=== PATIENT | male | born 1955 | race Caucasian/White ===

== ENCOUNTER 2018-08-25 12:17 | Day surgery (SDC) | payer BC ==
[2018-08-25] MEDS ORDERED: PROPOFOL 10 MG/ML VIAL IV ONE (12:18)
[2018-08-25] MEDS ORDERED: LIDOCAINE 2% MDV (20MG/ML) 20ML VIAL IV ONE (12:18)
--- NOTE | 2018-08-26 13:30 | Operative Note ---
DATE OF SURGERY: 08/25/2018 OPERATION: COLONOSCOPY to the cecum with cold snare polypectomy x1, electrocautery snare polypectomy x2, tattoo ink spot injection, Endoclip placement for closure. INDICATION: Colorectal cancer screening. Patient also notices occasions where he sees blood with his stool. ANESTHESIA: Intravenous sedation was administered by the department of anesthesiology and included Diprivan titrated to effect. PROCEDURE: Following informed consent from this alert individual including a discussion of the risks and benefits of the procedure and an opportunity for the patient to ask questions, the patient was in the left lateral decubitus position. A digital rectal examination was performed. There was mild anal stenosis noted. No masses were palpable. Following this, the Olympus [id number] video colonoscope was inserted into the rectum without resistance. The rectal mucosa had a normal appearance with normal folds and distensibility. The sigmoid colon was cannulated and demonstrated 3 polyps measuring in size between 6-15 mm in size, two of which were semi-pedunculated. The polyps were initially traversed and the colonoscope was advanced farther up through the bowel to the level of the cecum without much difficulty. Throughout the remainder of the bowel, the mucosa appeared normal, the folds were normal, and the bowel was fairly well distensible. The cecum was identified by noting the appendiceal orifice and ileocecal valve. Retroflexion was accomplished in the cecum. From the base of the cecum, the colonoscope was then withdrawn. No abnormalities were noted until the sigmoid colon was reached. The most proximal sigmoid polyp measured 10 mm in size and was removed with electrocautery snare polypectomy and suctioned through the colonoscope into a collection trap. The second polyp was approximately 6 mm in size and removed with cold snare polypectomy and suctioned through the colonoscope. The largest polyp was the most distal in the sigmoid colon measuring 15 mm across the head with a wide stalk. The polyp was removed in total with 1 application of electrocautery snare and suctioned on the tip of the colonoscope and withdrawn back through the remainder of the bowel and placed into a specimen container. The colonoscope was then re-advanced to the polypectomy site. The site was injected with ink spot and then closed with application of one Endoclip. The colonoscope was then further withdrawn. The rectum was endoscopically normal. Retroflexion in the rectum was also endoscopically unremarkable. The instrument was straightened and removed. The patient tolerated the procedure well and was returned to the recovery area in stable condition. IMPRESSION: Three sigmoid colon polyps noted as described above measuring 6, 10, and 15 mm, respectively, with the largest polyp distally, removed with electrocautery snare polypectomy, injected with ink spot and clipped for closure. RECOMMENDATIONS: Further recommendations will be forthcoming pending results of pathology obtained today. Followup will also be with Dr. Olson. As always, thank you for allowing me to participate in the care of your patient. CC: RADHA OLSON MD, FACP [facility]
== END 2018-08-25 14:24 | disposition home or self-care (01) ==
LOC: HOP 12:17
PROVIDERS: ATTEND Internal Medicine Gastroenterology
DX: Z12.11 Encounter for screening for malignant neoplasm of colon (principal); Z87.19 Personal history of other diseases of the digestive system; D12.5 Benign neoplasm of sigmoid colon; I10 Essential (primary) hypertension